=== PATIENT | male | born 1960 ===

== ENCOUNTER 2018-01-22 06:21 | Day surgery (SDC) | payer OTHER ==
[2018-01-19 06:46] VITALS: BMI 29.1
[2018-01-22] MEDS ORDERED: Propofol 10 mg/ml Inj (20 ML) ONE (07:20)
[2018-01-22] MEDS ORDERED: Midazolam 2 MG/2 ML VIAL ONE (07:20)
[2018-01-22] MEDS ORDERED: Lidocaine 2% Inj (20ml) ONE (07:22)
[2018-01-22] MEDS ORDERED: Sevoflurane - Inhalation Anesthetic Liq (250 ml) ONE (07:28)
[2018-01-22] MEDS ORDERED: Lidocaine 1% w Epi 1:100,000 Inj ONE (07:35)
[2018-01-22] MEDS ORDERED: HYDROmorphone 0.5 mg/0.5 ml ISec IVP ONE ×5 (09:09→10:40)
[2018-01-22] MEDS ORDERED: Bupivacaine 0.5% Inj(30mL) ONE (09:17)
[2018-01-22] MEDS ORDERED: Oxycodone/Acetaminophen 5/325 mg Tab PO PRN (09:30)
[2018-01-22] MEDS ORDERED: HYDROmorphone 0.5 mg/0.5 ml ISec ONE ×4 (09:38→10:38)
--- NOTE | 2018-01-22 09:43 | PCM.SURG1 ---
Surgeon's Initial Post Op Note - Surgeon's Notes Surgeon: Emiliano STARKEY Proof Sorter: Randy Red PA-c Type of Anesthesia: General Endo Anesthesia Administered By: Dr. Schaefer Pre-Operative Diagnosis: R knee medial meniscus tear Operative Findings: see full note Post-Operative Diagnosis: R knee medial and lateral meniscus tear, DJD, synovitis Operation Performed: Right knee arthroscopy with partial medial and lateral meniscectomies with mircofracture Specimen/Specimens Removed: none Estimated Blood Loss: EBL {In ML}: 10 Blood Products Given: N/A Drains Used: No Drains Post-Op Condition: Fair Date of Surgery/Procedure: 01/22/18 Time of Surgery/Procedure: 09:39 Addendum Addendum: 01/22/18 09:41 [place] [employer] patient report reviewed.No Rx listed. Patient counseled on the risks of addiction, physical or psychological dependence, and overdose associated with opioid drugs and the danger of taking opioid drugs with alcohol and other central nervous system depressants, and cautioned patient on storage and disposal.
[2018-01-22] MEDS ORDERED: HYDROmorphone 0.5 mg/0.5 ml ISec IVP STA (09:51)
[2018-01-22] MEDS ORDERED: Lactated Ringer's 1,000 ML IV SCH (10:00)
[2018-01-22 11:26] VITALS: RESP 18; TEMP 97.6; O2SAT 99
[2018-01-22 12:24] VITALS: BP 150/75; PULSE 55
[2018-01-22] MEDS ORDERED: Oxycodone/Acetaminophen 5/325 mg Tab ONE (12:25)
--- NOTE | 2018-01-22 21:08 | OP ---
PROCEDURE DATE: 01/22/2018 PREOPERATIVE DIAGNOSES: Right knee medial meniscal tear and degenerative joint disease with osteochondral defect of the medial femoral condyle, synovitis. POSTOPERATIVE DIAGNOSES: Right knee medial and lateral meniscal tears, multiple loose bodies, synovitis, and degenerative joint disease. PROCEDURE: Right knee arthroscopy with medial and lateral meniscectomies, removal of loose bodies, and extensive debridement as well as microfracture of the medial femoral condyle. SURGEON: Jono Marion MD. COMPARATIVE SOCIOLOGY PROFESSOR: Dr. Marion was assisted by Adelia Barajas, the physician speech language assistant. Ms. Barajas was scrubbed and present throughout the entire case and assisted in patient positioning, manipulation of the extremity during surgery as well as closure. TYPE OF ANESTHESIA: General. COMPLICATIONS: None. ESTIMATED BLOOD LOSS: 5 mL. INDICATIONS FOR PROCEDURE: This is a 57-year-old gentleman who complained of severe right knee pain and swelling. Clinical examination was consistent with medial joint line tenderness, pain with flexion, MRI consistent with tear of the medial meniscus as well as extensive synovitis and large osteochondral defect on the medial femoral condyle. After a period of failed nonsurgical management, recommendation was for a right knee arthroscopy. Risks, benefits, and alternatives of the procedure were discussed with the patient and informed consent was obtained. DESCRIPTION OF PROCEDURE: After the surgical site was signed and verified in the preoperative holding area, the patient was taken to the operating room and placed supine on the operating room table. After administration of general anesthesia, the patient received 2 g of Ancef IV. Tourniquet was placed about the right thigh. Venodyne boot was placed on the left lower extremity. Care was taken to make sure all bony prominences and nerves were well padded and protected and the right lower extremity was prepped and draped in usual sterile fashion. Bony landmarks were identified about the right knee and portal sites were injected with a total of 10 mL of 1% lidocaine with epi. An anterolateral arthroscopy portal was established and an arthroscope was inserted into the knee joint. Patellofemoral articulation was evaluated. The patient was noted to have extensive inflamed synovial tissue in both medial and lateral gutters as well as suprapatellar recess. Through an anterior and medial portal using a full-radius shaver, extensive synovectomy was performed. This allowed a much better visualization of the patellofemoral articulation. Patellofemoral articulation was noted to have some grade 1 to grade 2 changes. Patella was noted to track normally in the trochlea. Once this was done, attention was directed to the medial compartment. Medial compartment was evaluated. The patient was noted to have complex tear of the medial meniscus at the junction of the mid body to the posterior horn. Using basket forceps and full-radius shaver, meniscectomy was performed, resecting the posterior horn and mid portion of the meniscus to a small but stable rim. The patient was also noted to have a large area on the weightbearing medial femoral condyle where essentially had full-thickness cartilage loss. This area measured approximately 4 x 4 cm in its longest dimension and approximately 1.5 to 2 cm in width. Using microfracture awl, a microfracture was performed. The patient was also noted to have significant inflamed, injected synovial tissue anteriorly and this was also debrided using a full-radius shaver. Once this was done, the ACL could be visualized and appeared to have some intrasubstance tearing what appeared to be attached at both tibial and femoral insertions. PCL was also noted to have extensive inflamed synovial tissue, but appeared to be intact. Next, the lateral compartment was evaluated. Lateral meniscus was probed. The patient was found to have a tear of the mid body of the lateral meniscus, extending into the anterior horn. Again, using basket forceps and full-radius shaver, a meniscectomy was performed, resecting this to a stable rim. Popliteus tendon was also visualized and appeared to be intact. At this point, the knee joint was irrigated with arthroscopic cannula and all instruments were removed. All portal sites were closed using interrupted 3-0 Vicryl suture and Dermabond to the skin. A sterile dressing was applied. The patient was awakened from the procedure and taken to recovery room in stable condition. Jono Marion MD
== END 2018-01-22 13:50 | disposition home or self-care (01) ==
LOC: SDS 06:21
PROVIDERS: ATTEND Orthopaedic Surgery
DX: S83.241A Other tear of medial meniscus, current injury, right knee, initial encounter (principal); S83.281A Other tear of lateral meniscus, current injury, right knee, initial encounter; M23.41 Loose body in knee, right knee; M17.11 Unilateral primary osteoarthritis, right knee; M65.861 Other synovitis and tenosynovitis, right lower leg
CPT/HCPCS: 29875; 29879; 29880; 97116; J0690; J1170; J2250; J2405; J2704; J3010; J7120 ×2